=== PATIENT | female | born 1950 | race Caucasian/White ===

== ENCOUNTER → 2021-06-30 | Day surgery (SDC) | payer MEDICARE, OTHER ==
[~2021-06-30] VITALS: Ht 175.3 cm; Wt 79.5 kg
[~2021-06-30] MED LIST: ATENOLOL25 MG PO; GABAPENTIN300 MG PO; GABAPENTIN600 MG PO; HCTZ25 MG PO; POTASSIUM CHLO10 MEQ PO; PRAVACHOL40 MG PO; SYNTHROID75 MCG PO
[2021-06-30 09:49] LABS: HCT 41.3 % (37.0-47.0); HGB 14.4 g/dl (12.5-16.0); MCH 31.4 pg (25.0-31.0); MCHC 34.9 g/dL (32.0-36.0); MPV 10.5 fL (6.0-9.5); RBC 4.59 M/uL (4.20-5.40); RDW 13.2 % (11.5-14.0)
[2021-06-30 10:49] LABS: ALBUMIN 3.7 g/dL (3.4-5.0); BILIRUBIN - TOTAL 0.4 mg/dL (0.2-1.0); CREATININE 0.75 mg/dL (0.51-0.95); GLOBULIN (CALCULATION) 2.9 g/dL; POTASSIUM 3.3 mmol/L (3.5-5.1); TOTAL PROTEIN 6.6 g/dL (6.4-8.2)
== END | disposition home or self-care (01) ==
LOC: FAS 08:20
PROVIDERS: Surgery
DX: Z12.11 Encounter for screening for malignant neoplasm of colon (principal); D12.6 Benign neoplasm of colon, unspecified; K22.2 Esophageal obstruction; K57.30 Diverticulosis of large intestine without perforation or abscess without bleeding; K31.9 Disease of stomach and duodenum, unspecified; E78.5 Hyperlipidemia, unspecified; I10 Essential (primary) hypertension; E03.9 Hypothyroidism, unspecified; Z79.899 Other long term (current) drug therapy
CPT/HCPCS: 36415; 80053; C1726; J1610; J2250; J2704; J7120